=== PATIENT | female | born 1990 | race Caucasian/White ===

== ENCOUNTER 2016-08-27 02:43 | Emergency (ER) | payer OTHER ==
--- NOTE | ~2016-08-27 | CR63 ---
[facility]. [facility] A Service of [facility] & [facility] RADIOLOGY TEXT RESULTS PATIENT: RAFA MILLER LOCATION: SED : [birth year] UNIT #: [id number] AGE: [address]: Prashant Adkins MD SEX: F ORDER DR: [id number] [place] [address] [id number] E MR#: [id number] Acc #: [id number] NAME: RAFA MILLER : 1990 SEX: F STUDY DATE/TIME: 08/27/2016 3:05 UNIT: SED ROOM: STUDY DESCRIPTION: CR Chest 2 View Attending Physician: Prashant Adkins M.D. Ordering Physician: Prashant Adkins M.D. Primary Care Physician: Kal Major M.D. MEDICAL IMAGING REPORT This report is preliminary unless electronic signature is present. EXAM Two-view chest INDICATIONS Chest pain and cough since yesterday. PROCEDURE Frontal lateral views of the chest. COMPARISON: None FINDINGS Heart size is normal. Lungs are clear. No pleural fluid. No pneumothorax. IMPRESSION No active process Dictated by... Kvng Torres M.D. THIS IS AN ELECTRONICALLY VERIFIED REPORT Kvng Torres M.D. at 08/28/2016 9:56 PM MONSERRATD/evelin TD: 08/27/2016 11:23 JOB #: [id number] MEDICAL IMAGING REPORT Page 1 of 1
[~2016-08-27 02:43] MED LIST: BACTRIM DS TABL1 TA1 PO; BIRTH CONTROL PILL PO; IMPLANON68 MG/IMPL; LIORESAL10 MG PO; MOTRIN600 MG PO; NO MEDICATIONS; PYRIDIUM; PYRIDIUM PO; ZOFRAN ODT4 MG PO
[2016-08-27] MEDS ORDERED: ZOLOFT (02:53)
[2016-08-27] MEDS ORDERED: HEROIN (02:54)
[2016-08-27] MEDS ORDERED: TRAZODONE (02:54)
[2016-08-27] MEDS ORDERED: KLONOPIN (02:54)
[2016-08-27 06:51] LABS: URINE SOURCE CLEAN CATCH
[2016-08-27 06:54] LABS: URINE APPEARANCE CLOUDY; URINE BLOOD 1+ (NEG); URINE COLOR YELLOW; URINE GLUCOSE NEG (NORM); URINE LEUKOCYTE ESTERASE 2+ (NEG); URINE NITRATE NEG (NEG); URINE PROTEIN 1+ (NEG); URINE SPECIFIC GRAVITY >=1.030 (1.003-1.035)
[2016-08-27 06:55] LABS: URINE KETONE 3+ (NEG)
[2016-08-27 06:57] LABS: MICRO INDICATED? YES; URINE BILIRUBIN NEG (NEG)
[2016-08-27 06:58] LABS: CULTURE INDICATED? YES; URINE BACTERIA 4+ (NEG); URINE SQUAMOUS EPITHELIAL CELL MODERATE /[HPF]; URINE WBC INNUM /[HPF] (0-5)
== END 2016-08-27 07:20 | disposition home or self-care (01) ==
LOC: SED 02:43
PROVIDERS: Emergency Medicine
DX: M94.0 Chondrocostal junction syndrome [Tietze] (principal); F41.9 Anxiety disorder, unspecified; F19.10 Other psychoactive substance abuse, uncomplicated; F17.200 Nicotine dependence, unspecified, uncomplicated
CPT/HCPCS: 36415; 71020; 81003; 87086; 87088; 87186; 96361; 96374; 96375; 99284; J0696; J1885; J2060; J2405

== ENCOUNTER 2016-10-11 10:28 | Emergency (ER) | payer OTHER ==
[~2016-10-11 10:28] MED LIST changes: +HEROIN; +KLONOPIN; +TRAZODONE; +ZOLOFT
[2016-10-11] MEDS ORDERED: BUSPAR15 MG PO (10:30)
[2016-10-11 11:20] LABS: URINE SOURCE CLEAN CATCH
[2016-10-11 11:22] LABS: URINE APPEARANCE CLEAR; URINE BILIRUBIN NEG (NEG); URINE BLOOD 2+ (NEG); URINE COLOR YELLOW; URINE GLUCOSE NEG (NORM); URINE KETONE NEG (NEG); URINE LEUKOCYTE ESTERASE NEG (NEG); URINE NITRATE NEG (NEG); URINE PH 5.5 (5-8); URINE PROTEIN NEG (NEG); URINE SPECIFIC GRAVITY 1.025 (1.003-1.035); URINE UROBILINOGEN 0.2 MG/DL (NORM)
[2016-10-11 11:23] LABS: MICRO INDICATED? YES
[2016-10-11 11:51] LABS: URINE BACTERIA NEG (NEG); URINE SQUAMOUS EPITHELIAL CELL FEW /[HPF]; URINE WBC 0-2 /[HPF] (0-5)
[2016-10-13 11:29] LABS: CHLAMYDIA TRACH Not Detected (Not Detected); N GONOR Not Detected (Not Detected)
== END 2016-10-11 12:09 | disposition home or self-care (01) ==
LOC: SED 10:28
PROVIDERS: Physician Assistant
DX: J02.0 Streptococcal pharyngitis (principal); N76.0 Acute vaginitis; Z87.440 Personal history of urinary (tract) infections; F17.210 Nicotine dependence, cigarettes, uncomplicated; F41.9 Anxiety disorder, unspecified; F32.9 Major depressive disorder, single episode, unspecified
CPT/HCPCS: 81003; 87491; 87591; 87808; 87880; 87905; 96372; 99283; J0561